=== PATIENT | male | born 1960 | race Caucasian/White ===

== ENCOUNTER → 2017-09-18 | Outpatient (CLI) | payer BC | END | disposition home or self-care (01) | LOC: RAD 13:33 | PROVIDERS: ATTEND Family Medicine | DX: Z01.810 Encounter for preprocedural cardiovascular examination (principal); R07.9 Chest pain, unspecified | CPT/HCPCS: 71046; 93005 ==

== ENCOUNTER → 2017-10-04 | Outpatient (CLI) | payer BC ==
[~2017-10-04] MED LIST: AMLO1CAP12 PO; ASPI-496 PO; ATEN1TAB3 PO; BUPR-173 PO; BUPR300T49 PO; FLUT100B PO; TAMS-11 PO; TRAZ50TA18 PO
[2017-10-04 10:33] LABS: ALANINE AMINOTRANSFERASE 40 U/L (12-78); ALBUMIN 3.8 g/dL (3.4-5.0); ANION GAP 5 mmol/L (5-15); CALCIUM 8.6 mg/dL (8.5-10.1); CHLORIDE 107 mmol/L (98-107); CREATININE 1.37 mg/dL (0.7-1.3)
[2017-10-04 10:36] LABS: ALKALINE PHOSPHATASE 40 U/L (45-117); BILIRUBIN,TOTAL 0.6 mg/dL (0.2-1.0); TOTAL PROTEIN 7.1 g/dL (6.4-8.2)
[2017-10-04 10:41] LABS: BASOPHILS # (AUTO) 0.02 x10^3/uL (0-0.1); BASOPHILS % (AUTO) 0 % (0-1); EOSINOPHILS # (AUTO) 0.17 x10^3/uL (0-0.4); EOSINOPHILS % (AUTO) 2 % (1-7); LYMPHOCYTES # (AUTO) 1.19 x10^3/uL (1-3.4); LYMPHOCYTES % (AUTO) 17 % (22-44); MD NO; MEAN CORPUSCULAR HEMOGLOBIN 33.3 pg (27.5-34.5); MEAN CORPUSCULAR VOLUME 95.1 fL (81-97); MEAN PLATELET VOLUME 7.7 fL (7.4-10.4); MONOCYTES % (AUTO) 7 % (2-9); NEUTROPHILS # (AUTO) 5.19 x10^3/uL (1.8-6.8); NEUTROPHILS % (AUTO) 74 % (42-75); PLATELET COUNT 182 x10^3/uL (130-400); RED BLOOD COUNT 5.08 x10^6/uL (4.38-5.82); RED CELL DISTRIBUTION WIDTH 12.8 % (9.4-14.8)
[2017-10-04 10:42] LABS: MICROSCOPIC NOT IND
[2017-10-04 10:44] LABS: CULTURE INDICATED? NO
== END | disposition home or self-care (01) ==
LOC: STAR 09:25
PROVIDERS: ATTEND Orthopaedic Surgery
DX: Z01.818 Encounter for other preprocedural examination (principal); M17.12 Unilateral primary osteoarthritis, left knee
CPT/HCPCS: 36415; 80053; 81003; 85025; 87081

== ENCOUNTER 2017-10-22 12:19 | Inpatient (IN) | payer BC ==
[~2017-10-22] VITALS: Ht 193 cm; Wt 138.0 kg
[2017-10-22] MEDS ORDERED: LACTATED RINGERS 1,000 ML IV SCH (13:04)
[2017-10-22 13:38] VITALS: BP 135/96
[2017-10-22] MEDS ORDERED: BUSP10TA PO (13:43)
[2017-10-22] MEDS ORDERED: GABAPENTIN 300 MG CAPSULE PO ONE (14:00)
[2017-10-22] MEDS ORDERED: ACETAMINOPHEN 500 MG TABLET PO ONE (14:00)
[2017-10-22] MEDS ORDERED: SCOPOLAMINE PATCH, 1.5MG PATCH.TD72 TD ONE (14:00)
[2017-10-22] MEDS ORDERED: FAMOTIDINE 20 MG TABLET PO ONE (14:00)
[2017-10-22] MEDS ORDERED: OXYcodone IR 5MG TABLET PO ONE (14:00)
[2017-10-22] MEDS ORDERED: EPINEPHRINE 1 MG/ML, 1ML ONE (14:59)
[2017-10-22] MEDS ORDERED: TRANEXAMIC ACID 100 MG/ML, 10ML ONE (14:59)
[2017-10-22] MEDS ORDERED: ROPIvacaine/PF 0.2%, 20 ML ONE (14:59)
[2017-10-22] MEDS ORDERED: KETOROLAC 60 MG/2 ML ONE (14:59)
[2017-10-22] MEDS ORDERED: SODIUM CHLORIDE 0.9% 100 ML ONE (14:59)
[2017-10-22] MEDS ORDERED: ACETAMINOPHEN 325 MG TABLET PO PRN (15:00)
[2017-10-22] MEDS ORDERED: PROMETHAZINE 25 MG/ML, 1ML IV PRN (15:00)
[2017-10-22] MEDS ORDERED: OXYcodone 5 MG/5 ML ORAL.SOL UDC PO PRN (15:00)
[2017-10-22] MEDS ORDERED: MIDAZOLAM 1 MG/ML, 2ML ONE (15:02)
[2017-10-22] MEDS ORDERED: FENTANYL PF 250 MCG/5ML ONE (15:02)
[2017-10-22] MEDS ORDERED: SENNA/DOCUSATE TABLET PO PRN (15:30)
[2017-10-22] MEDS ORDERED: HYDROmorphone 1 MG/ML, 1ML IV PRN (15:30)
[2017-10-22] MEDS ORDERED: PROMETHAZINE 25 MG/ML, 1ML IM PRN (15:30)
[2017-10-22] MEDS ORDERED: ONDANSETRON 2MG/ML, 2ML IV PRN (15:30)
[2017-10-22] MEDS ORDERED: MAGNESIUM HYDROXIDE 8%, 30ML UDC PO PRN (15:30)
[2017-10-22] MEDS ORDERED: ONDANSETRON 4 MG TABLET PO PRN (15:30)
[2017-10-22] MEDS ORDERED: LORazepam 1MG TABLET PO PRN (15:30)
[2017-10-22] MEDS ORDERED: ALUMINUM/MAG/SIMETHICONE 30 ML UDC PO PRN (15:30)
[2017-10-22] MEDS ORDERED: ZOLPIDEM 5MG TABLET PO PRN (15:30)
[2017-10-22] MEDS ORDERED: DIPHENHYDRAMINE 25 MG CAPSULE PO PRN (15:30)
[2017-10-22] MEDS ORDERED: PROMETHAZINE 12.5 MG SUPP PR PRN (15:30)
[2017-10-22] MEDS ORDERED: TRANEXAMIC ACID 1,500 MG in SODIUM CHLORIDE 0.9% 100 ML IVPB ONE (15:30)
[2017-10-22] MEDS ORDERED: BISACODYL 10 MG SUPP PR PRN (15:30)
[2017-10-22] MEDS ORDERED: DIAZEPAM 5 MG TABLET PO PRN (15:30)
[2017-10-22] MEDS ORDERED: PROPOFOL 10 MG/ML, 20ML ONE (15:58)
[2017-10-22] MEDS ORDERED: KETAMINE 50 MG/ML, 10ML ONE (15:58)
[2017-10-22] MEDS ORDERED: DEXAMETHASONE 4 MG/ML, 1ML ONE ×2 (16:24→16:25)
[2017-10-22] MEDS ORDERED: GLYCOPYRROLATE 0.2MG/1ML, 5ML ONE (16:25)
[2017-10-22] MEDS ORDERED: ONDANSETRON 2MG/ML, 2ML ONE (16:25)
[2017-10-22] MEDS ORDERED: CEFAZOLIN 1,000 MG ONE ×3 (16:25)
[2017-10-22] MEDS: FENTANYL PF 100 MCG/2ML IV PRN ×2 (17:32→17:46)
[2017-10-22] MEDS ORDERED: FENTANYL PF 100 MCG/2ML ONE (17:33)
[2017-10-22] MEDS ORDERED: OXYcodone 5 MG/5 ML ORAL.SOL UDC ONE (17:33)
[2017-10-22] MEDS ORDERED: HYDROmorphone 2 MG/ML, 1ML ONE (18:03)
[2017-10-22] MEDS: HYDROmorphone 1 MG/ML, 1ML IV PRN ×4 (18:04→18:41)
[2017-10-22] MEDS ORDERED: BUSPIRONE 10 MG TABLET PO SCH (21:00)
[2017-10-22] MEDS: DOCUSATE 100 MG CAPSULE PO SCH (21:06)
[2017-10-22] MEDS: ASPIRIN 81 MG TABLET EC PO SCH (21:06)
[2017-10-22] MEDS: ACETAMINOPHEN 650 MG/20.3 ML UDC PO SCH ×2 (21:07→23:30)
[2017-10-22] MEDS: HYDROmorphone 2MG TABLET PO PRN (21:18)
[2017-10-22] MEDS ORDERED: TAMSULOSIN 0.4 MG CAP.ER.24H PO SCH (22:00)
[2017-10-22] MEDS ORDERED: BENAZEPRIL 20 MG TABLET PO SCH (22:15)
[2017-10-22] MEDS ORDERED: AMLODIPINE 5 MG TABLET PO SCH (22:15)
[2017-10-22] MEDS ORDERED: TRAZODONE 150MG TABLET PO SCH ×2 (22:15→22:32)
[2017-10-22] MEDS ORDERED: AMLODIPINE HOMEMEDPO SCH (22:29)
[2017-10-22] MEDS ORDERED: BENAZEPRIL HOMEMEDPO SCH (22:29)
[2017-10-22] MEDS: D5%-0.45% NACL 1,000 ML IV SCH ×2 (23:05→23:15)
[2017-10-23] MEDS: CEFAZOLIN PMX 2GM/50ML 50 ML IVPB SCH ×2 (00:52→08:30)
[2017-10-23] MEDS: HYDROmorphone 2MG TABLET PO PRN ×5 (01:15→19:36)
[2017-10-23 04:31] VITALS: BP 124/76
[2017-10-23] MEDS ORDERED: ATENOLOL 50 MG TABLET PO SCH ×2 (06:00→09:00)
[2017-10-23] MEDS ORDERED: CHLORTHALIDONE 25 MG TABLET PO SCH ×2 (06:00→09:00)
[2017-10-23] MEDS ORDERED: DEXAMETHASONE 4 MG/ML, 1ML IVPush SCH (06:00)
[2017-10-23] MEDS: ASPIRIN 81 MG TABLET EC PO SCH ×2 (06:02→17:02)
[2017-10-23] MEDS: ACETAMINOPHEN 650 MG/20.3 ML UDC PO SCH ×2 (06:02→13:56)
[2017-10-23] MEDS: D5%-0.45% NACL 1,000 ML IV SCH ×2 (06:23→13:49)
[2017-10-23 06:39] VITALS: BP 129/81
[2017-10-23] MEDS: DOCUSATE 100 MG CAPSULE PO SCH (08:30)
[2017-10-23] MEDS ORDERED: BUSPIRONE 10 MG TABLET PO SCH (09:00)
[2017-10-23] MEDS ORDERED: BENAZEPRIL 20 MG TABLET PO SCH (09:00)
[2017-10-23] MEDS ORDERED: AMLODIPINE 5 MG TABLET PO SCH (09:00)
[2017-10-23] MEDS ORDERED: TRAZODONE 150MG TABLET PO SCH (09:00)
[2017-10-23] MEDS ORDERED: ATENOLOL HOMEMEDPO SCH (09:00)
[2017-10-23] MEDS ORDERED: BUPROPION 300 MG HOMEMEDPO SCH (09:00)
[2017-10-23] MEDS ORDERED: TAMSULOSIN 0.4 MG CAP.ER.24H PO SCH (09:00)
[2017-10-23] MEDS ORDERED: CHLORTHALIDONE HOMEMEDPO SCH (09:00)
[2017-10-23] MEDS ORDERED: HYDR2TAB29 PO (11:54)
[2017-10-23 12:23] VITALS: BP 120/81
[2017-10-23] MEDS ORDERED: KETOROLAC 30 MG/1 ML IV SCH ×2 (15:30)
[2017-10-23 19:31] VITALS: BP 126/79
== END 2017-10-23 19:50 | disposition home or self-care (01) | DRG 470 ==
LOC: OUT 12:19 → ORIP 15:23 → 4NOR 19:04
PROVIDERS: ADMIT Orthopaedic Surgery; ATTEND Orthopaedic Surgery
PROC: 0SRD0J9 Replacement of Left Knee Joint with Synthetic Substitute, Cemented, Open Approach (ICD-10-PCS; principal; 2017-10-22 15:00)
PROC: 5A09357 Assistance with Respiratory Ventilation, Less than 24 Consecutive Hours, Continuous Positive Airway Pressure (ICD-10-PCS; 2017-10-23)
DX: M17.12 Unilateral primary osteoarthritis, left knee (principal); I10 Essential (primary) hypertension; N40.0 Benign prostatic hyperplasia without lower urinary tract symptoms; Z87.891 Personal history of nicotine dependence
CPT/HCPCS: 36415; 73560; J3490; 85018; C1713; J0171; J0690; J1100; J1170; J1885; J2250; J2405; J2704; J2795; J3010; C1776; J7120

== ENCOUNTER → 2018-06-12 | Outpatient (CLI) | payer BC ==
[~2018-06-12] MED LIST changes: +BUSP10TA PO; +HYDR2TAB29 PO; -TRAZ50TA18 PO; +TRAZ50TA66 PO
== END | disposition home or self-care (01) ==
LOC: RAD 14:26
PROVIDERS: ATTEND Registered Nurse
DX: J32.0 Chronic maxillary sinusitis (principal); J34.2 Deviated nasal septum
CPT/HCPCS: 70486; 71250

== ENCOUNTER → 2020-01-22 | Outpatient (CLI) | payer BC ==
[~2020-01-22] MED LIST changes: -AMLO1CAP12 PO; +AMLO1CAP13 PO; +APIX5TAB PO; +FLUT1BLS INH; +HYDR-826 PO; +PREG50CA PO
[2020-01-22 15:35] LABS: BASOPHILS % (AUTO) 1 % (0-1); EOSINOPHILS % (AUTO) 4 % (1-7); LYMPHOCYTES % (AUTO) 19 % (22-44); MEAN CORPUSCULAR HEMOGLOBIN 26.8 pg (27.5-34.5); MEAN CORPUSCULAR HGB CONC 32.3 g/dL (33.2-36.2); MEAN PLATELET VOLUME 7.1 fL (7.4-10.4); MONOCYTES % (AUTO) 11 % (2-9); NEUTROPHILS % (AUTO) 65 % (42-75); PLATELET COUNT 291 x10^3/uL (130-400); RED BLOOD COUNT 4.01 x10^6/uL (4.38-5.82); RED CELL DISTRIBUTION WIDTH 19.3 % (9.4-14.8)
[2020-01-22 15:38] LABS: ALANINE AMINOTRANSFERASE 29 U/L (12-78); ALBUMIN 3.2 g/dL (3.4-5.0); ANION GAP 8 mmol/L (5-15); CHLORIDE 111 mmol/L (98-107); CREATININE 2.32 mg/dL (0.7-1.3)
[2020-01-22 15:41] LABS: ALKALINE PHOSPHATASE 47 U/L (45-117); BILIRUBIN,TOTAL 0.3 mg/dL (0.2-1.0); TOTAL PROTEIN 7.2 g/dL (6.4-8.2)
[2020-01-22 15:48] LABS: MD NO
== END | disposition home or self-care (01) ==
LOC: STAR 13:59
PROVIDERS: ATTEND Surgery
DX: Z01.812 Encounter for preprocedural laboratory examination (principal); Z20.828 Contact with and (suspected) exposure to other viral communicable diseases
CPT/HCPCS: 36415; 80053; 85025; 87635; 93005